=== PATIENT | male | born 1970 | race African-American/Black ===

== ENCOUNTER 2017-01-30 16:01 | Emergency (ER) | payer MEDICAID ==
[~2017-01-30] VITALS: Ht 180.3 cm; Wt 112.0 kg
[2017-01-30] MEDS ORDERED: METHYLPREDNISOLONE SOD SUCC 125 MG/2 ML VIAL IV STA (16:42)
[2017-01-30] MEDS ORDERED: ALBUTEROL (0.083%) 2.5MG/3ML NEB HHN STA ×2 (16:42→19:28)
[2017-01-30] MEDS ORDERED: IPRATROPIUM BROMIDE (0.02%) 0.5MG/2.5ML NEB HHN STA (16:42)
[2017-01-30 17:05] LABS: INR 1.1; PROTHROMBIN TIME 11.4 sec
[2017-01-30 17:12] LABS: BASOPHILS % 0.5 % (0.0-2.0); EOSINOPHILS % 6.1 % (0.0-5.0); HEMATOCRIT. 35.5 % (42.0-52.0); HEMOGLOBIN. 12.1 g/dL (14.0-18.0); MEAN CORPUSCULAR HEMOGLOBIN 30.2 pg (28.0-32.0); MEAN CORPUSCULAR HGB CONC 34.2 g/dL (31.0-37.0); MEAN CORPUSCULAR VOLUME 88.4 fL (80.0-94.0); MEAN PLATELET VOLUME 7.9 fl (7.4-10.4); MONOCYTES % 4.8 % (2.0-8.0); NEUTROPHILS % 76.6 % (40.0-76.0); PLATELET 258 x1000/uL (130-400); RED BLOOD CELL COUNT 4.02 mill/uL (4.7-6.1)
[2017-01-30 17:14] LABS: ANION GAP 12; CARBON DIOXIDE 28 mEq/L (21-32); CHLORIDE 103 mEq/L (98-107); UREA NITROGEN BLOOD 7 mg/dL (7-21)
[2017-01-30 17:15] LABS: ALANINE AMINOTRANSFERASE 17 IU/L (13-61); CALCIUM 8.2 mg/dL (8.5-10.1); INDEX HEMOLYSI 1 (1-3); INDEX ICTERIC 1 (1-4); INDEX LIPEMIC 1 (1-3); NT PRO B-TYPE NATRIURETIC PEP 1032 pg/mL (5-125); TROPONIN I 0.03 ng/mL (0.00-0.04); eGFR > 60 mL/min (>60)
[2017-01-30 17:58] LABS: CLARITY URINE CLEAR (CLEAR); COLOR URINE YELLOW (YELLOW); GLUCOSE URINE NEGATIVE (NEGATIVE); KETONES URINE NEGATIVE (NEGATIVE); LEUKOCYTE ESTERASE URINE NEGATIVE (NEGATIVE); NITRITE URINE NEGATIVE (NEGATIVE); OCCULT BLOOD URINE NEGATIVE (NEGATIVE); PROTEIN URINE NEGATIVE (NEGATIVE); SPECIFIC GRAVITY URINE 1.014 (1.005-1.030)
[2017-01-30] MEDS ORDERED: POTASSIUM CHLORIDE 20MEQ TABLET SR PO NR (19:45)
[2017-01-30 21:45] VITALS: BP 157/81
[2017-01-30] MEDS ORDERED: POTASSIUM CHLORIDE 20MEQ TABLET SR PO ONE (21:45)
== END 2017-01-30 21:57 | disposition left against medical advice (07) ==
LOC: ER 16:16
DX: J45.901 Unspecified asthma with (acute) exacerbation (principal); E87.6 Hypokalemia; I50.9 Heart failure, unspecified; I10 Essential (primary) hypertension; M10.9 Gout, unspecified; Z88.6 Allergy status to analgesic agent; Z87.891 Personal history of nicotine dependence; Z88.0 Allergy status to penicillin
CPT/HCPCS: 36415; 71010; 80053; 81003; 83880; 84484; 85025; 85610; 94644; 96374; 99285; J2930; J7611; Z7610